=== PATIENT | male | born 2000 | race Caucasian/White ===

== ENCOUNTER 2022-01-01 17:30 | Outpatient (CLI) | payer OTHER, SELFPAY | END 2022-01-01 17:31 | disposition home or self-care (01) | LOC: LKVREF 17:31 | PROVIDERS: Visit Provider Physician Assistant Medical | DX: R61 Generalized hyperhidrosis (principal) | CPT/HCPCS: 83036; 84443 ==

== ENCOUNTER 2023-08-01 20:40 | Emergency (ER) | payer OTHER, SELFPAY ==
[2023-08-01 20:46] VITALS: BP 144/83; PULSE 66; RESP 16; TEMP 36.2; O2SAT 96; BMI 28.7
[2023-08-01 21:29] LABS: Basophils Absolute Auto 0.01 K/uL (0.00-0.30); Basophils Percent Auto 0.1 % (0.0-3.0); Eosinophils Absolute Auto 0.11 K/uL (0.00-0.50); Eosinophils Percent Auto 1.3 % (0.0-7.0); Hematocrit 45.5 % (37.0-53.0); Hemoglobin* 15.9 gm/dL (13.5-17.5); Immature Granulocytes Abs Auto 0.02 K/uL (0.00-0.30); Immature Granulocytes Pct Auto 0.2 %; Lymphocytes Absolute Auto 1.94 K/uL (0.90-2.90); Lymphocytes Percent Auto 22.1 % (20-44); Mean Corpuscular HGB Conc 35 gm/dL (32-36); Mean Corpuscular Hemoglobin 31 pg (26-34); Mean Corpuscular Volume 88 fL (80-100); Neutrophils Percent Auto 68.3 % (42.0-72.0); Platelet Count* 215 K/uL (140-440); RDW Coefficient of Variation % 11.6 % (11.5-15.5); Red Blood Count 5.17 m/uL (4.30-5.90); White Blood Count* 8.78 K/uL (4.50-11.00)
[2023-08-01 21:39] LABS: Slide Review Reflex No
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
== END 2023-08-01 22:07 | disposition home or self-care (01) ==
LOC: ED 21:57
PROVIDERS: Emergency Provider Student in an Organized Health Care Education/Training Program
DX: L03.115 Cellulitis of right lower limb (principal)
CPT/HCPCS: 36415; 85025; 99282; 99283